=== PATIENT | male | born 1980 | race Two or more races ===

== ENCOUNTER 2017-07-03 19:34 | Emergency (ER) | payer OTHER ==
[~2017-07-03] VITALS: Ht 177.8 cm; Wt 86.2 kg
[2017-07-03 19:49] VITALS: BP 128/76
--- NOTE | 2017-07-03 19:49 | NUR ---
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 a/o x4 able to make needs known. no sob noted or pain at the site. states "happened 10 years ago". will continue to monitor for any changes
[2017-07-03] MEDS ORDERED: CLINDAMYCIN 900 MG in IV D5W 100 ML IM ONE (20:30)
== END 2017-07-03 20:15 | disposition home or self-care (01) ==
LOC: ER 19:36
DX: L03.114 Cellulitis of left upper limb (principal); F11.10 Opioid abuse, uncomplicated; F17.210 Nicotine dependence, cigarettes, uncomplicated
CPT/HCPCS: 99283; 99406; A4606; J3490; J7060; Z7610

== ENCOUNTER 2019-04-29 18:08 | Emergency (ER) | payer OTHER ==
[~2019-04-29] VITALS: Ht 177.8 cm; Wt 94.3 kg
[2019-04-29 19:28] LABS: APPEARANCE,URINE Clear (CLEAR); BILIRUBIN,URINE SMALL (NEGATIVE); BLOOD, URINE Negative Ery/uL (NEGATIVE); COLOR,URINE Dark (YELLOW); KETONES,URINE Negative (NEGATIVE); LEUKOCYTE ESTERASE ,URINE Negative (NEGATIVE); NITRITE, URINE Negative (NEGATIVE); PH,URINE 5.5 (5.0-8.0); PROTEIN,URINE 30 mg/dl (NEGATIVE); UGLUCOSE Negative (NEGATIVE); UROBILINOGEN,URINE 0.2 EU/dL (0.2)
--- NOTE | 2019-04-29 19:40 | NUR ---
DIFFUSE ABDOMINAL PAIN W/ N/V/D X 2 DAYS. PT AAOX4, VSS. DENIES CP, SOB, DIZZINESS @ THIS TIME. SEEN & EVAL'D BY WILIAN SNELL. WILL CONT TO MONITOR.
[2019-04-29 19:47] LABS: BACTERIA,URINE Few /HPF (None Seen); HYALINE CASTS, URINE Moderate /LPF (None Seen); SQUAMOUS EPITHELIAL CELL,UR Few /HPF (None Seen); WBC,URINE 0-2 /HPF (0-3)
[2019-04-29] MEDS ORDERED: ONDANSETRON HCL/PF 4 MG/2 ML VIAL ONE (19:47)
[2019-04-29 19:49] LABS: FINE GRANULAR CASTS,URINE Few /LPF (None Seen)
[2019-04-29 19:50] LABS: MUCUS,URINE Few /LPF (None Seen)
[2019-04-29] MEDS ORDERED: TDAP [DIPH/PERTUSSIS/TET] 0.5 ML VIAL IM ONE (20:12)
[2019-04-29] MEDS ORDERED: OLANZAPINE 10 MG VIAL IM ONE (20:12)
[2019-04-29] MEDS ORDERED: KETOROLAC TROMETHAMINE INJ 30 MG/ML VIAL ONE (20:12)
--- NOTE | 2019-04-29 20:34 | NUR ---
INFORMED CHECO FORTE UNABEL TO GET IV ACCESS AFTER MULTIPLE ATTEMPTS.
[2019-04-29 21:17] LABS: BASOPHILS % (AUTO) 0.2 % (0.0-2.0); LYMPHOCYTES # (AUTO) 1.5 /CMM (0.8-4.8)
[2019-04-29 21:22] LABS: EOSINOPHILS % (AUTO) 4.3 % (0.0-6.0); HEMATOCRIT 45 % (39-51); HEMOGLOBIN 15.9 g/dL (13.5-17.5); LYMPHOCYTES % (AUTO) 13.8 % (20.0-44.0); MEAN CORPUSCULAR HGB CONC 35 g/dl (31.0-36.0); MEAN CORPUSCULAR VOLUME 82 fL (80-96); MONOCYTES # (AUTO) 0.9 /CMM (0.1-1.30); MONOCYTES % (AUTO) 8.4 % (2.0-12.0); NEUTROPHILS # (AUTO) 7.8 /CMM (1.8-8.9); NEUTROPHILS % (AUTO) 73.3 % (43.0-81.0); PLATELET COUNT (AUTO) 273 /CMM (150-450); RED BLOOD CELL COUNT(AUTO) 5.55 MIL/uL (4.5-6.0); WHITE BLOOD COUNT (AUTO) 10.7 K/uL (4.3-11.0)
[2019-04-29] MEDS: IV NS 0.9% 1,000 ML BAG IV ONE ×2 (21:30→23:07)
[2019-04-29] MEDS: ONDANSETRON 4 MG TAB.RAPDIS SL ONE (21:31)
[2019-04-29 21:32] LABS: CALCIUM, SERUM 8.8 mg/dL (8.5-10.1); CREATININE 1.1 mg/dL (0.6-1.3); POTASSIUM 3.3 mmol/L (3.5-5.1)
[2019-04-29] MEDS: ONDANSETRON HCL/PF 4 MG/2 ML VIAL IVP ONE (21:32)
--- NOTE | 2019-04-29 21:36 | NUR ---
MEDICATED ORDERED PER WILIAN SNELL'S ORDER. PT WEI WELL.
[2019-04-29 21:37] LABS: ALBUMIN 3.9 g/dL (3.4-5.0); BILIRUBIN,DIRECT 0.1 mg/dL (0.0-0.2); BILIRUBIN,TOTAL 0.5 mg/dL (0.2-1.0); TOTAL PROTEIN, SERUM 8.2 g/dL (6.4-8.2)
[2019-04-29] MEDS ORDERED: POTASSIUM CHLORIDE 20 MEQ TAB.PRT.SR PO ONE (23:08)
[2019-04-29] MEDS: POTASSIUM CHLORIDE 20 MEQ TAB.PRT.SR PO ONE (23:11)
--- NOTE | 2019-04-29 23:31 | NUR ---
IV removed. Catheter intact and site benign. Pressure and 4x4 applied to site. No bleeding noted.
--- NOTE | 2019-04-30 00:04 | NUR ---
Patient discharged to home in stable condition. Written and verbal after care instructions given. Patient verbalizes understanding of instruction.Pt ambulatory with a steady gait
[2019-04-30 00:05] VITALS: BP 131/78
== END 2019-04-30 00:05 | disposition home or self-care (01) ==
LOC: ER 18:08
DX: R11.2 Nausea with vomiting, unspecified (principal); R19.7 Diarrhea, unspecified; R10.84 Generalized abdominal pain; R10.11 Right upper quadrant pain; F17.210 Nicotine dependence, cigarettes, uncomplicated; E87.6 Hypokalemia; F11.10 Opioid abuse, uncomplicated; Z90.89 Acquired absence of other organs
CPT/HCPCS: 36415; 80048; 80076; 81001; 83690; 85025; 96361; 96374; 99283; J2405; J7030 ×2; 81000-TC; 90715; J1885; J3490

== ENCOUNTER 2020-11-02 01:22 | Emergency (ER) | payer OTHER ==
[~2020-11-02] VITALS: Ht 175.3 cm; Wt 90.7 kg
[2020-11-02 01:30] VITALS: BP 120/81
[2020-11-02] MEDS ORDERED: SULF1TAB48 PO (01:41)
[2020-11-02] MEDS ORDERED: CEPH500T PO (01:41)
== END 2020-11-02 01:46 | disposition home or self-care (01) ==
LOC: ER 01:28
DX: L02.413 Cutaneous abscess of right upper limb (principal); L02.416 Cutaneous abscess of left lower limb; F19.10 Other psychoactive substance abuse, uncomplicated; F17.200 Nicotine dependence, unspecified, uncomplicated; Z98.890 Other specified postprocedural states; Z79.899 Other long term (current) drug therapy

== ENCOUNTER 2021-12-08 20:50 | Inpatient (IN) | payer OTHER ==
[~2021-12-08] VITALS: Ht 170.2 cm; Wt 78.5 kg
[~2021-12-08 20:50] MED LIST: CEPH500T PO; SULF1TAB48 PO
--- NOTE | 2021-12-08 21:30 | NUR ---
TO ER BED 4. BIBS C/O L UPPER THIGH/HIP CELLULITIS X 3 DAYS. REDNESS AND SWELLING NOTED. PT STATES PAIN 10/10 ON P/S. PT TOOK UNKNOWN UNPRESCRIBED ANTIBIOTIC FOR 3 DAYS. DID NOT TAKE ANYTHING FOR PAIN. CHANGED INTO GOWN. CONNECTED TO MONITOR. AWAITING MD BOWLES
[2021-12-08] MEDS ORDERED: IV NS 0.9% 500 ML BAG IV ONE (22:30)
[2021-12-08] MEDS ORDERED: ONDANSETRON HCL/PF 4 MG/2 ML VIAL IVP ONE (22:30)
[2021-12-08] MEDS ORDERED: VANCOMYCIN 1 GM in IV D5W 250 ML IV ONE (22:30)
[2021-12-08] MEDS ORDERED: MORPHINE SULFATE INJ 2 MG/ML DISP.SYRIN IV ONE (22:30)
[2021-12-08] MEDS ORDERED: MORPHINE SULFATE INJ 4 MG/ML DISP.SYRIN ONE (22:33)
[2021-12-08] MEDS ORDERED: ONDANSETRON HCL/PF 4 MG/2 ML VIAL ONE (22:33)
[2021-12-08] MEDS ORDERED: VANCOMYCIN 1 GM VIAL ONE (22:33)
--- NOTE | 2021-12-08 22:43 | NUR ---
BLOOD AND CULTURES COLLECTED AND SENT TO LAB
--- NOTE | 2021-12-08 22:43 | NUR ---
COVID SWAB DONE AND SENT TO LAB
[2021-12-08 23:00] LABS: BASOPHILS % (AUTO) 0.2 % (0.0-2.0); EOSINOPHILS % (AUTO) 0.4 % (0.0-6.0); HEMATOCRIT 39 % (39-51); HEMOGLOBIN 13.2 g/dL (13.5-17.5); LYMPHOCYTES # (AUTO) 0.8 K/uL (0.8-4.8); LYMPHOCYTES % (AUTO) 9.1 % (20.0-44.0); MEAN CORPUSCULAR HGB CONC 34 g/dl (31.0-36.0); MEAN CORPUSCULAR VOLUME 82 fL (80-96); MONOCYTES # (AUTO) 0.8 K/uL (0.1-1.30); MONOCYTES % (AUTO) 8.7 % (2.0-12.0); NEUTROPHILS # (AUTO) 7.6 K/uL (1.8-8.9); NEUTROPHILS % (AUTO) 81.6 % (43.0-81.0); PLATELET COUNT (AUTO) 339 K/uL (150-450); RED BLOOD CELL COUNT(AUTO) 4.79 MIL/uL (4.5-6.0); WHITE BLOOD COUNT (AUTO) 9.3 K/uL (4.3-11.0)
--- NOTE | 2021-12-08 23:02 | NUR ---
CLINICAL INFO GIVEN TO [employer] TEAM MEMBER, OVER THE PHONE
[2021-12-08 23:26] LABS: ALANINE AMINOTRANSFERASE 21 U/L (12-78); ALBUMIN 2.7 g/dL (3.4-5.0); ALKALINE PHOSPHATASE 239 U/L (46-116); ASPARTATE AMINOTRANSFERASE 16 U/L (15-37); BILIRUBIN,DIRECT 0.1 mg/dL (0.0-0.2); BILIRUBIN,TOTAL 0.5 mg/dL (0.2-1.0); CALCIUM, SERUM 8.7 mg/dL (8.5-10.1); CARBON DIOXIDE 31 mmol/L (21-32); CHLORIDE 87 mmol/L (98-107); CREATININE 1.5 mg/dL (0.6-1.3); LIPASE 29 U/L (73-393); POTASSIUM 4.2 mmol/L (3.5-5.1); SODIUM SERUM 127 mmol/L (136-145); TOTAL PROTEIN, SERUM 7.8 g/dL (6.4-8.2); UREA NITROGEN, BLOOD 14 mg/dL (7-18)
[2021-12-08 23:30] LABS: GLUCOSE > 500 mg/dL (74-106)
[2021-12-08] MEDS ORDERED: INSULIN REGULAR, HUMAN 100 UNIT/ML 10 ML VIAL IV ONE (23:30)
--- NOTE | 2021-12-08 23:30 | NUR ---
CRITICAL LABS LA 3.1 AND GLUCOSE >500
[2021-12-08] MEDS ORDERED: INSULIN REGULAR, HUMAN 100 UNIT/ML 10 ML VIAL ONE (23:34)
--- NOTE | 2021-12-09 00:09 | NUR ---
MRSA SWAB COLLECTED AND SENT TO LAB. PATIENT'S BELONGINGS LIST DONE.
--- NOTE | 2021-12-09 00:44 | NUR ---
REPORT GIVEN TO LOIDA POOLE FOR ANNIE
--- NOTE | 2021-12-09 01:00 | NUR ---
MS RN ADMITTING NOTES: RECEIVED PATIENT FROM ER VIA [facility] ON STABLE CONDITION, PLACED COMFORTABLY ON BED, BED IN LOW POSITION CALL LIGHTS WITHIN REACH, ON ROOM AIR SATURATING WELL WITH IV LINE AT RFA#20 WITH ONGOING PLR 1000 ONE TIME INFUSING WELL, SIN ASSESSMENT DONE AND DOCUMENTED, PATIENT INVENTORY DOCUMENTED AND SIGNED, PATIENT WAS ORIENTED TO PLACE, REMIND PATIENT TO USE CALL LIGHTS WHEN NEEDED ASSISTANCE, PATIENT KEPT CLEAN AND SRY ALL NEEDS MET WILL CONTINUE TO MOJITOR.
[2021-12-09] MEDS ORDERED: DEXTROSE 50%-WATER 50 ML DISP.SYRIN IV PRN (02:00)
[2021-12-09] MEDS ORDERED: IV LR 1000 ML 1,000 ML IV ONE ×2 (02:00)
[2021-12-09] MEDS ORDERED: MAG HYDROX/AL HYDROX/SIMETH 30 ML UDC PO PRN (02:00)
[2021-12-09] MEDS ORDERED: Z GUARD REMEDY 4 OZ OINT TP PRN (02:00)
[2021-12-09] MEDS ORDERED: ONDANSETRON HCL/PF 4 MG/2 ML VIAL IVP PRN (02:00)
[2021-12-09] MEDS ORDERED: MORPHINE SULFATE INJ 2 MG/ML DISP.SYRIN IV PRN (02:00)
[2021-12-09] MEDS ORDERED: ACETAMINOPHEN 325 MG TABLET PO PRN (02:00)
--- NOTE | 2021-12-09 02:00 | NUR ---
RN NOTES: PLR 1000ML NOT GIVEN REASON DUPLICATE ORDER
[2021-12-09 03:00] VITALS: BP 124/89
[2021-12-09] MEDS ORDERED: ZOSYN IVPB 3.375 G in IV D5W 50ml IV ONE (03:00)
[2021-12-09] MEDS ORDERED: PIPERACILLIN /TAZOBACTAM 3.375 G VIAL IV ONE (03:11)
[2021-12-09] MEDS ORDERED: PIPERACILLIN /TAZOBACTAM 3.375 G in IV D5W 50 ML IV SCH (06:00)
[2021-12-09 06:39] LABS: BASOPHILS % (AUTO) 0.2 % (0.0-2.0); EOSINOPHILS % (AUTO) 0.6 % (0.0-6.0); HEMATOCRIT 38 % (39-51); HEMOGLOBIN 12.8 g/dL (13.5-17.5); LYMPHOCYTES # (AUTO) 1.1 K/uL (0.8-4.8); LYMPHOCYTES % (AUTO) 12.3 % (20.0-44.0); MEAN CORPUSCULAR HGB CONC 34 g/dl (31.0-36.0); MEAN CORPUSCULAR VOLUME 82 fL (80-96); MONOCYTES # (AUTO) 1.1 K/uL (0.1-1.30); MONOCYTES % (AUTO) 11.9 % (2.0-12.0); NEUTROPHILS # (AUTO) 6.8 K/uL (1.8-8.9); PLATELET COUNT (AUTO) 330 K/uL (150-450); RED BLOOD CELL COUNT(AUTO) 4.58 MIL/uL (4.5-6.0); WHITE BLOOD COUNT (AUTO) 9.1 K/uL (4.3-11.0)
[2021-12-09] MEDS: BLOOD SUGAR DIAGNOSTIC 1 EACH STRIP IN SCH ×2 (06:41→11:50)
--- NOTE | 2021-12-09 06:42 | NUR ---
RN NOTES: BS-310/ 8 UNITS INSULIN GIVEN
[2021-12-09] MEDS: INSULIN REGULAR, HUMAN 100 UNIT/ML 3 ML VIAL SQ PRN ×2 (06:45→11:53)
[2021-12-09 07:06] LABS: ALBUMIN 2.2 g/dL (3.4-5.0); BILIRUBIN,TOTAL 0.4 mg/dL (0.2-1.0); CALCIUM, SERUM 8.4 mg/dL (8.5-10.1); CREATININE 0.8 mg/dL (0.6-1.3); MAGNESIUM 1.9 mg/dL (1.8-2.4); TOTAL PROTEIN, SERUM 6.9 g/dL (6.4-8.2)
--- NOTE | 2021-12-09 07:29 | NUR ---
RN CLOSING NOTES: RECEIVED PATIENT SLEEP IN BED COMFORTABLY,BED IN LOW POSITION CALL LIGHTS WITHIN RAC, NO COMPLAIN OF PAIN AND DISCOMFORT AT THIS TIME, ON ROOM AIR SATURATING WELL, ON TELE MONITORING SR-70 WITH PAC, WITH IV LINE AT RFA#20 WITH ONGOING PLR 1000 CC ONE TIME, PATIENT, KEPT CLEAN AND DRY SKIN ASSESS DONE AND DOCUMENTED, PATIENT KEPT CLEAN AND DRY ALL NEEDS MET ENDORSE TO INCOMING SHIFT. Addendum: 12/09/21 at 0734 by GRACE DARNELL RN RN NOTES: WRONG POSTING OF TELE MONTOR FOR PT. 320-[address]-110 NO SYMPTOMS OBSERVED, AND NOT SR-70 WITH PAC
--- NOTE | 2021-12-09 07:32 | NUR ---
RN OPENING NOTE- PT IN BED, IN PAIN, STATES "I WANT TO LEAVE. THIS IS TAKING TOO LONG. IT HURTS." NOC SHIFT RN RECENTLY ADMINISTERED MORPHINE 4 MG IVP (30 MIN AGO), CONTINUE TO MONITOR AND ADVISE MD. BED IN LOW POSITION CALL LIGHTS WITHIN [facility], NO COMPLAIN OF PAIN AND DISCOMFORT AT THIS TIME, ON ROOM AIR SATURATING WELL, ON TELE MONITORING SR-76 WITH PAC, WITH IV LINE AT RFA#20 WITH ONGOING PLR 1000 CC ONE TIME, PATIENT, KEPT CLEAN AND DRY SKIN . MONITOR / ASSIST
[2021-12-09 08:00] VITALS: BP 107/60
[2021-12-09] MEDS ORDERED: METF-442 PO (08:20)
[2021-12-09] MEDS ORDERED: FLUC100T8 PO (08:23)
[2021-12-09] MEDS ORDERED: HYDROCODONE/APAP 10/325MG TABLET PO PRN (08:30)
[2021-12-09] MEDS ORDERED: VANCOMYCIN 1 GM in IV D5W 250 ML IV SCH (11:00)
--- NOTE | 2021-12-09 11:40 | NUR ---
RN NOTE- IV INFILTRATED. MIDLINE ORDERED PER DR ROSALES
--- NOTE | 2021-12-09 11:41 | NUR ---
RN NOTE- 1100 AM [place] PLACED ON HOLD IV SITE COMPROMISED. AWAITING MIDLINE
[2021-12-09] MEDS ORDERED: INSULIN REGULAR, HUMAN 100 UNIT/ML 10 ML VIAL SQ STA (11:48)
--- NOTE | 2021-12-09 11:53 | NUR ---
RN NOTE- ACCU-CHECK BS-474. DR ROSALES ORDERED REG SSI COVERAGE OF TEN UNITS PLUS TWO MORE UNITS. TOTAL 12 UNITS REG INSULIN.
[2021-12-09 12:00] VITALS: BP 103/61
[2021-12-09] MEDS ORDERED: PIPERACILLIN /TAZOBACTAM 3.375 G in IV D5W 100 ML IV SCH (12:00)
[2021-12-09] MEDS ORDERED: HYDROCODONE/APAP 10/325MG TABLET PO STA (12:13)
--- NOTE | 2021-12-09 12:35 | NUR ---
RN NOTE- PT LEFT AMA . SPOKE W DR ROSALES . EXPLAINED THAT HE HAS INFECTION THAT REQUIRES MEDICAL TX. PT REFUSED TO STAY. ID [id number] REMOVED. AMA FORM SIGNED. ESCORTED OFF UNIT BY THIS RN
[2021-12-09] MEDS ORDERED: METFORMIN 500 MG TABLET PO SCH (17:00)
== END 2021-12-09 12:35 | disposition left against medical advice (07) | DRG 383 ==
LOC: ER 20:53 → MED 12-09 00:37 → TELE 12-09 06:01
PROVIDERS: ADMIT Nurse Practitioner Family; ATTEND Student in an Organized Health Care Education/Training Program
DX: L03.116 Cellulitis of left lower limb (principal); N17.0 Acute kidney failure with tubular necrosis; E44.0 Moderate protein-calorie malnutrition; E87.2 Acidosis; E87.1 Hypo-osmolality and hyponatremia; E88.09 Other disorders of plasma-protein metabolism, not elsewhere classified; E11.65 Type 2 diabetes mellitus with hyperglycemia; Z79.84 Long term (current) use of oral hypoglycemic drugs; Z90.49 Acquired absence of other specified parts of digestive tract; F17.200 Nicotine dependence, unspecified, uncomplicated; F19.10 Other psychoactive substance abuse, uncomplicated; E86.1 Hypovolemia
CPT/HCPCS: 36415; 73700-TC; 76882; 80048-TC; 80053-TC; 80076-TC; 82010-TC; 82962-TC; 83605-TC; 83690-TC; 83735-TC; 85025-TC; 85730-TC; 87040-TC; 87081-TC; C9803; G0378; J1815; J2270; J2405; J2543; J3370; J7040; J7060; J7120

== ENCOUNTER 2021-12-12 23:29 | Inpatient (IN) | payer OTHER ==
[~2021-12-12] VITALS: Ht 177.8 cm; Wt 77.1 kg
[~2021-12-12 23:29] MED LIST changes: -CEPH500T PO; +FLUC100T8 PO; +METF-442 PO; -SULF1TAB48 PO
--- NOTE | 2021-12-13 01:50 | NUR ---
IV LINE ESTABLISHED , L UPPER ARM 20G. BLOOD OBTAINED AND SENT TO LAB
--- NOTE | 2021-12-13 01:54 | NUR ---
BIBS. TO ER BED 7.AAOX4. NOT IN RESP DISTRESS, BREATHING EVEN AND UNLABORED. AMBULATORY WITH A LIMP. CAME IN FOR AN ABSCESS ON HIS L UPPER THIGH WHICH HAS BEEN GOING ON FOR THE PAST 5 DAYS. NOTED PAIN, SWELLING AND REDNESS. MD WAS AT THE BEDSIDE FOR EVAL. ORDERS RECEIVED, NOTED AND CARRIED OUT
--- NOTE | 2021-12-13 01:55 | NUR ---
COVID ANTIGEN SWAB COLLECTED AND SENT TO LAB
[2021-12-13] MEDS ORDERED: MORPHINE SULFATE INJ 2 MG/ML DISP.SYRIN IV ONE ×2 (02:00→10:30)
[2021-12-13] MEDS ORDERED: ONDANSETRON HCL/PF 4 MG/2 ML VIAL IVP ONE (02:00)
[2021-12-13] MEDS ORDERED: IV NS 0.9% 1,000 ML BAG IV ONE (02:00)
[2021-12-13] MEDS ORDERED: VANCOMYCIN 1 GM in IV D5W 250 ML IV ONE (02:00)
[2021-12-13] MEDS ORDERED: ONDANSETRON HCL/PF 4 MG/2 ML VIAL ONE (02:04)
[2021-12-13] MEDS ORDERED: MORPHINE SULFATE INJ 4 MG/ML DISP.SYRIN ONE (02:05)
[2021-12-13] MEDS ORDERED: VANCOMYCIN 1 GM VIAL ONE (02:05)
[2021-12-13 02:20] LABS: BASOPHILS % (AUTO) 0.3 % (0.0-2.0); EOSINOPHILS % (AUTO) 0.9 % (0.0-6.0); HEMATOCRIT 34 % (39-51); HEMOGLOBIN 11.6 g/dL (13.5-17.5); LYMPHOCYTES # (AUTO) 1.2 K/uL (0.8-4.8); MEAN CORPUSCULAR HGB CONC 34 g/dl (31.0-36.0); MEAN CORPUSCULAR VOLUME 81 fL (80-96); MONOCYTES % (AUTO) 9.2 % (2.0-12.0); NEUTROPHILS # (AUTO) 8.3 K/uL (1.8-8.9); NEUTROPHILS % (AUTO) 78.6 % (43.0-81.0); PLATELET COUNT (AUTO) 402 K/uL (150-450); RED BLOOD CELL COUNT(AUTO) 4.19 MIL/uL (4.5-6.0); WHITE BLOOD COUNT (AUTO) 10.5 K/uL (4.3-11.0)
[2021-12-13 02:29] LABS: CALCIUM, SERUM 8.8 mg/dL (8.5-10.1)
[2021-12-13 02:44] LABS: ALBUMIN 2.4 g/dL (3.4-5.0); BILIRUBIN,DIRECT 0.1 mg/dL (0.0-0.2); BILIRUBIN,TOTAL 0.3 mg/dL (0.2-1.0); TOTAL PROTEIN, SERUM 7.3 g/dL (6.4-8.2)
--- NOTE | 2021-12-13 05:10 | NUR ---
EPIC PANEL PAGED
--- NOTE | 2021-12-13 05:16 | NUR ---
DR. CALLOWAY ON PHONE CALL WITH DR. OLIVAREZ REGARDING ADMISSION
[2021-12-13] MEDS ORDERED: ACETAMINOPHEN 325 MG TABLET PO PRN (05:30)
[2021-12-13] MEDS ORDERED: hydrALAZINE HCL IV 20 MG VIAL IV PRN (05:30)
[2021-12-13] MEDS ORDERED: INSULIN REGULAR, HUMAN 100 UNIT/ML 3 ML VIAL SQ PRN (05:30)
[2021-12-13] MEDS ORDERED: IV NS 0.9% 1,000 ML IV SCH (05:30)
[2021-12-13] MEDS ORDERED: DEXTROSE 50%-WATER 50 ML DISP.SYRIN IV PRN (05:30)
[2021-12-13] MEDS ORDERED: CEFEPIME 1 GM in IV D5W 50 ML IV ONE (06:00)
--- NOTE | 2021-12-13 06:00 | NUR ---
PT STATES HE HAS PAIN 10/10 ON P/S. WILL PROVIDE PRN PAIN MEDS ORDERED BY .
[2021-12-13] MEDS ORDERED: CEFEPIME 1 GM VIAL ONE (06:04)
[2021-12-13] MEDS ORDERED: MORPHINE SULFATE INJ 2 MG/ML DISP.SYRIN ONE (06:13)
[2021-12-13] MEDS: MORPHINE SULFATE INJ 2 MG/ML DISP.SYRIN IV PRN ×3 (06:17→14:53)
--- NOTE | 2021-12-13 07:51 | NUR ---
BED 326-2. ADMITTING AND NURSE NOTIFIED.
--- NOTE | 2021-12-13 08:02 | NUR ---
REPORT GIVEN TO ELIZABETH POOLE FOR ANNIE
--- NOTE | 2021-12-13 08:17 | NUR ---
TRANSFERRED TO BED 326 IN STABLE CONDITION
--- NOTE | 2021-12-13 08:20 | NUR ---
RN NOTES PATIENT ARRIVED TO UNIT AT ROOM 326-2 VIA GURNEY, ACCOMPANIED BY 1 TECH. ABLE TO USE SPC FOR AMBULATION W/ SBA/CGA.
[2021-12-13] MEDS: BLOOD SUGAR DIAGNOSTIC 1 EACH STRIP IN SCH ×3 (08:57→17:31)
[2021-12-13] MEDS ORDERED: HEPARIN SODIUM, PORCINE 5000 UNITS/1 ML VIAL SQ SCH (09:00)
[2021-12-13 09:30] VITALS: BP 108/74
[2021-12-13] MEDS ORDERED: LIDOCAINE 2%-EPI 1:100,000 30 ML VIAL TP ONE ×2 (09:30→10:30)
--- NOTE | 2021-12-13 09:30 | NUR ---
WOUND CARE CONSULT; PT PRESENTS WITH LARGE RAISED RED AREA TO LEFT ANTERIOR THIGH/GROIN AREA, PRESENT ON ADMISSION. DR TYSON MUNOZ ON CASE. WILL SEE PRN.
--- NOTE | 2021-12-13 09:31 | NUR ---
RN NOTES PATIENT SEEN BY EVIE LOWE NP, FOR SURGICAL CONSULT. PATIENT NOTED W/ ABSCESS ON LEFT GROIN/THIGH AREA; UNABLE TO TAKE PHOTO PATIENT REFUSED AT THIS TIME. FOR INCISION AND DRAINAGE PROCEDURE. PATIENT CONSENTED AND FORM PLACED IN THE CHART.
[2021-12-13] MEDS ORDERED: IV NS 0.9% 1,000 ML IV PRN (09:38)
[2021-12-13] MEDS ORDERED: VANCOMYCIN 1.25 GM in IV D5W 250 ML IV SCH (10:00)
--- NOTE | 2021-12-13 10:30 | NUR ---
RN NOTES S/P I&D OF LEFT GROIN ABSCESS; ABLE TO DRAIN ~250CC OF SANGUINEOUS DRAINAGE MIXED W/ PUS. CULTURE OBTAINED.
--- NOTE | 2021-12-13 13:52 | NUR ---
RN NOTES ADMITTED THIS 41-Y.O. MALE FROM ER W/ COMPLAINT OF L UPPER THIGH ABSCESS X5DAYS W/ ADMITTING DIAGNOSIS OF CELLULITIS. PATIENT IS A/O X4, VERBALLY RESPONSIVE, ABLE TO MAKE NEEDS KNOWN. HX OF SUBSTANCE USE/ABUSE, DM, AND ETOH. PATIENT IS ABLE TO AMBULATE W/ SPC W/ CGA. IV LINE INTACT AND PATENT. NOTED W/ L THIGH/GROIN ABSCESS, UNABLE TO TAKE PICTURES PRE-OPERATIVELY PATIENT REFUSED BECAUSE HE WAS IN SO MUCH PAIN TO TURN. ABLE TO USE URINAL AT BEDSIDE. PAIN MANAGED APPROPRIATELY. SAFETY MEASURES IN PLACE. CALL LIGHT PLACED W/IN REACH FOR ASSISTANCE.
[2021-12-13 16:00] VITALS: BP 107/68
--- NOTE | 2021-12-13 18:29 | NUR ---
RN NOTES PATIENT REQUESTING FOR PAIN MEDICATION AND ONLY AVAILABLE MEDICATION IS MORPHINE IV; UNABLE TO GIVE THROUGH IV AT THIS TIME PATIENT'S IV LINE IS INFILTRATED. INFORMED DR. KIM, AWAITING CALL BACK FOR ORDER.
[2021-12-13] MEDS ORDERED: HYDROCODONE/APAP 10/325MG TABLET PO PRN (18:30)
--- NOTE | 2021-12-13 19:30 | NUR ---
MS RN OPENING NOTES; RECEIVE PATIENT AWAKE IN BED, PATIENT IS A/OX4 AMBULATORY ABLE TO MAKE NEEDS KNOWN, S/P I&D OF LEFT T6HIGH WITH ABSVESS, ON ROOM AIR SATURATING WELL, DRESSING CHANGE, PATIENT KEPT CLEAN AND DRY ALL NEEDSMET WILL CONTINUE TO MONITOR.
[2021-12-13 20:00] VITALS: BP 107/61
[2021-12-13] MEDS ORDERED: CEFEPIME 2 GM in IV D5W 100 ML IV SCH (20:00)
--- NOTE | 2021-12-13 20:25 | NUR ---
RN NOTES: PATIENT WENT ON AMA EXPLAIN THE RISK BUT PATIENT INSIST DUE TO EMERGENCY REASON, SIGNED AMA FORM, DAMARIS TORRES, WAS MADE AWARE, NOTIFY DR KANDACE [place] AND HOSPITALIST DR ROSALES.
== END 2021-12-13 20:20 | disposition left against medical advice (07) | DRG 383 ==
LOC: ER 23:38 → TRANSITION 12-13 05:42 → MED 12-13 07:56
PROVIDERS: ADMIT Internal Medicine; ATTEND Internal Medicine
PROC: 0H9JXZZ Drainage of Left Upper Leg Skin, External Approach (ICD-10-PCS; principal; 2021-12-13)
PROC: 0H99XZZ Drainage of Perineum Skin, External Approach (ICD-10-PCS; 2021-12-13)
DX: L03.116 Cellulitis of left lower limb (principal); E43 Unspecified severe protein-calorie malnutrition; D63.8 Anemia in other chronic diseases classified elsewhere; E88.09 Other disorders of plasma-protein metabolism, not elsewhere classified; E87.1 Hypo-osmolality and hyponatremia; L02.214 Cutaneous abscess of groin; L02.416 Cutaneous abscess of left lower limb; E86.1 Hypovolemia; F17.200 Nicotine dependence, unspecified, uncomplicated; Z20.822 Contact with and (suspected) exposure to COVID-19; Z53.29 Procedure and treatment not carried out because of patient's decision for other reasons; E11.9 Type 2 diabetes mellitus without complications; Z90.49 Acquired absence of other specified parts of digestive tract; Z79.84 Long term (current) use of oral hypoglycemic drugs; F12.10 Cannabis abuse, uncomplicated
CPT/HCPCS: 36415; 80048-TC; 80076-TC; 82962-TC; 83605-TC; 85025-TC; 85730-TC; 87040-TC; 87070-TC; A6253; A6403; C9803; G0378; J0692; J1644; J2270; J2405; J3370; J3490; J7030; J7060

== ENCOUNTER 2024-03-08 12:03 | Inpatient (IN) | payer OTHER ==
[~2024-03-08] VITALS: Ht 177.8 cm; Wt 81.6 kg
[2024-03-08] MEDS ORDERED: ONDANSETRON HCL/PF 4 MG/2 ML VIAL ONE (12:58)
[2024-03-08] MEDS ORDERED: MORPHINE SULFATE INJ 4 MG/ML DISP.SYRIN ONE (12:58)
[2024-03-08] MEDS: ONDANSETRON HCL/PF 4 MG/2 ML VIAL IVP ONE (14:01)
[2024-03-08] MEDS: MORPHINE SULFATE INJ 2 MG/ML DISP.SYRIN IV ONE (14:02)
[2024-03-08] MEDS: IV NS 0.9% 1,000 ML BAG IV ONE (14:04)
[2024-03-08] MEDS: CEFEPIME 1 GM in IV D5W 50 ML IV ONE (14:05)
[2024-03-08] MEDS ORDERED: IOHEXOL-300 100 ML VIAL IV ONE (14:11)
[2024-03-08] MEDS ORDERED: IV NS 0.9% 500 ML IV ONE (14:11)
[2024-03-08 14:26] LABS: BASOPHILS % (AUTO) 0.1 % (0.0-2.0); EOSINOPHILS % (AUTO) 0.2 % (0.0-6.0); HEMATOCRIT 34 % (39-51); HEMOGLOBIN 11.3 g/dL (13.5-17.5); LYMPHOCYTES # (AUTO) 0.9 K/uL (0.8-4.8); LYMPHOCYTES % (AUTO) 7.9 % (20.0-44.0); MEAN CORPUSCULAR HEMOGLOBIN 27 PG (26.0-33.0); MEAN CORPUSCULAR HGB CONC 33 g/dl (31.0-36.0); MEAN CORPUSCULAR VOLUME 81 fL (80-96); MONOCYTES % (AUTO) 8.2 % (2.0-12.0); NEUTROPHILS # (AUTO) 9.9 K/uL (1.8-8.9); NEUTROPHILS % (AUTO) 83.6 % (43.0-81.0); PLATELET COUNT (AUTO) 373 K/uL (150-450); RED BLOOD CELL COUNT(AUTO) 4.24 MIL/uL (4.5-6.0); RED CELL DISTRIBUTION WIDTH 13.2 % (11.5-15.0); WHITE BLOOD COUNT (AUTO) 11.8 K/uL (4.3-11.0)
[2024-03-08 14:32] LABS: CALCIUM, SERUM 8.9 mg/dL (8.5-10.1); POTASSIUM 4.1 mmol/L (3.5-5.1)
[2024-03-08] MEDS: INSULIN LISPRO/ASPART 100 UNIT/ML CARTRIDGE SQ STA (14:35)
[2024-03-08 14:38] LABS: ALBUMIN 2.7 g/dL (3.4-5.0); BILIRUBIN,DIRECT 0.2 mg/dL (0.0-0.2); BILIRUBIN,TOTAL 0.5 mg/dL (0.2-1.0); TOTAL PROTEIN, SERUM 7.7 g/dL (6.4-8.2)
[2024-03-08] MEDS: VANCOMYCIN 1 GM in IV D5W 250 ML IV ONE (14:40)
[2024-03-08 14:42] LABS: LACTIC ACID 1.4 mmol/L (0.4-2.0)
[2024-03-08 14:43] LABS: INR 1.09 (0.91-1.10); PARTIAL THROMBOPLASTIN TIME 29.7 SEC (24.3-34.3); PROTHROMBIN TIME 11.5 SECS (9.2-11.1)
[2024-03-08] MEDS ORDERED: INSULIN REGULAR, HUMAN 100 UNIT/ML 10 ML VIAL ONE (14:48)
[2024-03-08 16:00] VITALS: BP 115/85; TEMP 97.6; O2SAT 100
[2024-03-08] MEDS: IV NS 0.9% 1,000 ML IV PRN (18:27)
[2024-03-08] MEDS ORDERED: ACETAMINOPHEN 325 MG TABLET PO PRN (18:30)
[2024-03-08] MEDS ORDERED: Z GUARD REMEDY 4 OZ OINT TP PRN (18:30)
[2024-03-08] MEDS: MORPHINE SULFATE INJ 4 MG/ML DISP.SYRIN IV PRN (18:33)
[2024-03-08] MEDS: ONDANSETRON HCL/PF 4 MG/2 ML VIAL IVP PRN (18:34)
[2024-03-08] MEDS: PIPERACILLIN /TAZOBACTAM 3.375 G in IV D5W 50 ML IV SCH (18:42)
[2024-03-08] MEDS ORDERED: DEXTROSE 50%-WATER 50 ML DISP.SYRIN IV PRN (19:00)
[2024-03-08 21:00] VITALS: BP 115/72; TEMP 98.8; O2SAT 96
[2024-03-08] MEDS: BLOOD SUGAR DIAGNOSTIC 1 EACH STRIP IN SCH (22:38)
[2024-03-08] MEDS: INSULIN REGULAR, HUMAN 100 UNIT/ML 3 ML VIAL SQ PRN (22:42)
[2024-03-08] MEDS: ENOXAPARIN SODIUM 40 MG/0.4 ML DISP.SYRIN SQ SCH (22:42)
[2024-03-08] MEDS: VANCOMYCIN 750 MG in IV D5W 250 ML IV SCH (22:54)
[2024-03-09 05:00] VITALS: BP 119/68; TEMP 98.8; O2SAT 100
[2024-03-09 07:09] LABS: BASOPHILS % (AUTO) 0.4 % (0.0-2.0); EOSINOPHILS % (AUTO) 0.1 % (0.0-6.0); HEMATOCRIT 34 % (39-51); HEMOGLOBIN 11.4 g/dL (13.5-17.5); LYMPHOCYTES # (AUTO) 0.6 K/uL (0.8-4.8); LYMPHOCYTES % (AUTO) 4.4 % (20.0-44.0); MEAN CORPUSCULAR HEMOGLOBIN 27 PG (26.0-33.0); MEAN CORPUSCULAR HGB CONC 34 g/dl (31.0-36.0); MEAN CORPUSCULAR VOLUME 80 fL (80-96); MONOCYTES # (AUTO) 0.9 K/uL (0.1-1.30); MONOCYTES % (AUTO) 6.8 % (2.0-12.0); NEUTROPHILS # (AUTO) 11.4 K/uL (1.8-8.9); NEUTROPHILS % (AUTO) 88.3 % (43.0-81.0); PLATELET COUNT (AUTO) 389 K/uL (150-450); RED BLOOD CELL COUNT(AUTO) 4.24 MIL/uL (4.5-6.0); RED CELL DISTRIBUTION WIDTH 12.8 % (11.5-15.0); WHITE BLOOD COUNT (AUTO) 12.9 K/uL (4.3-11.0)
[2024-03-09 07:41] LABS: CALCIUM, SERUM 8.2 mg/dL (8.5-10.1); CREATININE 0.6 mg/dL (0.6-1.3); PHOSPHORUS 3.2 mg/dL (2.5-4.9); POTASSIUM 3.6 mmol/L (3.5-5.1)
[2024-03-09 08:00] VITALS: BP 118/80; TEMP 98.6; O2SAT 100
[2024-03-09] MEDS: PANTOPRAZOLE 40 MG TABLET.DR PO SCH (08:13)
[2024-03-09 12:00] VITALS: BP 136/56; TEMP 97.7; O2SAT 98
[2024-03-09] MEDS: GABAPENTIN 300 MG CAPSULE PO SCH (12:45)
[2024-03-09] MEDS: CELECOXIB 100 MG CAPSULE PO SCH (12:49)
[2024-03-09 16:00] VITALS: BP 135/57; TEMP 97.9; O2SAT 95
[2024-03-09] MEDS ORDERED: VANCOMYCIN 750 MG in IV D5W 250 ML IV SCH (16:00)
[2024-03-09] MEDS: HYDROMORPHONE 1 MG/1 ML DISP.SYRIN IV PRN (16:08)
[2024-03-09] MEDS: VANCOMYCIN HCL 1.25 GM in IV D5W 250 ML IV SCH (17:14)
[2024-03-09 21:00] VITALS: BP 114/77; TEMP 97.9; O2SAT 95
[2024-03-09] MEDS ORDERED: FENTANYL PF 250MCG/5ML AMPUL ONE ×2 (22:56→23:29)
[2024-03-09] MEDS ORDERED: MIDAZOLAM HCL 2 MG/2ML VIAL ONE (22:56)
[2024-03-09] MEDS ORDERED: HYDROMORPHONE INJ 2 MG/ML DISP.SYRIN ONE (23:41)
[2024-03-10] MEDS ORDERED: IV LR 1000 ML 1,000 ML IV PRN (01:00)
[2024-03-10] MEDS: IV LR 1000 ML 1,000 ML IV PRN (01:19)
[2024-03-10 01:30] VITALS: BP 124/84; TEMP 98.5; O2SAT 100
[2024-03-10 02:00] VITALS: BP 113/75; TEMP 98.6; O2SAT 100
[2024-03-10 02:30] VITALS: BP 112/75; TEMP 98.6; O2SAT 100
[2024-03-10 05:00] VITALS: BP 125/77; TEMP 98.6; O2SAT 100
[2024-03-10 08:00] VITALS: BP 97/71; TEMP 97.5; O2SAT 99
[2024-03-10 16:00] VITALS: BP 140/88; TEMP 97.5; O2SAT 100
[2024-03-11] MEDS ORDERED: SULF1TAB48 PO (09:11)
== END 2024-03-10 16:55 | disposition left against medical advice (07) | DRG 383 ==
LOC: ER 12:03 → MEDSG1 15:08
PROVIDERS: ADMIT Nurse Practitioner Acute Care; ATTEND Nurse Practitioner Acute Care
PROC: 0H9JXZX Drainage of Left Upper Leg Skin, External Approach, Diagnostic (ICD-10-PCS; principal; 2024-03-09)
DX: L02.416 Cutaneous abscess of left lower limb (principal); D63.8 Anemia in other chronic diseases classified elsewhere; L02.214 Cutaneous abscess of groin; E11.65 Type 2 diabetes mellitus with hyperglycemia; E87.1 Hypo-osmolality and hyponatremia; Z90.49 Acquired absence of other specified parts of digestive tract; Z79.84 Long term (current) use of oral hypoglycemic drugs; Z91.199 Patient's noncompliance with other medical treatment and regimen due to unspecified reason; Z79.4 Long term (current) use of insulin; Z53.29 Procedure and treatment not carried out because of patient's decision for other reasons; F11.10 Opioid abuse, uncomplicated; Z87.2 Personal history of diseases of the skin and subcutaneous tissue
CPT/HCPCS: 36415; 71045-TC; 73701-TC; 80048-TC; 80076-TC; 80202-TC; 82962-TC; 83605-TC; 83735-TC; 84100-TC; 84443-TC; 85025-TC; 85730-TC; 87040-TC; 87081-TC; 98960; A4223; A6253; A6403; G0378; J0692; J1170; J1650; J1815; J2250; J2270; J2405; J2543; J2704; J3010; J3370; J3371; J7030; J7040; J7060; J7120; Q9967

== ENCOUNTER 2024-09-04 15:21 | Inpatient (IN) | payer OTHER ==
[~2024-09-04] VITALS: Ht 177.8 cm; Wt 70.7 kg
[~2024-09-04 15:21] MED LIST changes: -FLUC100T8 PO; +SULF1TAB48 PO
[2024-09-04] MEDS ORDERED: IV NS 0.9% 250 ML IV ONE (16:12)
[2024-09-04] MEDS ORDERED: IOHEXOL-300 100 ML VIAL IV ONE (16:12)
[2024-09-04] MEDS: CEFEPIME 1 GM in IV D5W 50 ML IV ONE (16:30)
[2024-09-04 16:40] LABS: C-REACTIVE PROTEIN 15.34 mg/dL (0.0-0.30)
[2024-09-04 16:41] LABS: CALCIUM, SERUM 8.1 mg/dL (8.5-10.1); CREATININE 0.8 mg/dL (0.6-1.3); POTASSIUM 4.4 mmol/L (3.5-5.1)
[2024-09-04 16:57] LABS: BASOPHILS % (AUTO) 0.1 % (0.0-2.0); EOSINOPHILS % (AUTO) 0.4 % (0.0-6.0); HEMATOCRIT 35 % (39-51); HEMOGLOBIN 12.2 g/dL (13.5-17.5); LYMPHOCYTES # (AUTO) 0.9 K/uL (0.8-4.8); LYMPHOCYTES % (AUTO) 12.3 % (20.0-44.0); MEAN CORPUSCULAR HEMOGLOBIN 27 PG (26.0-33.0); MEAN CORPUSCULAR HGB CONC 35 g/dl (31.0-36.0); MEAN CORPUSCULAR VOLUME 78 fL (80-96); MONOCYTES # (AUTO) 0.7 K/uL (0.1-1.30); MONOCYTES % (AUTO) 9.1 % (2.0-12.0); NEUTROPHILS # (AUTO) 5.8 K/uL (1.8-8.9); NEUTROPHILS % (AUTO) 78.1 % (43.0-81.0); PLATELET COUNT (AUTO) 234 K/uL (150-450); RED BLOOD CELL COUNT(AUTO) 4.49 MIL/uL (4.5-6.0); RED CELL DISTRIBUTION WIDTH 13.5 % (11.5-15.0); WHITE BLOOD COUNT (AUTO) 7.4 K/uL (4.3-11.0)
[2024-09-04 16:59] LABS: ERYTHROCYTE SEDIMENTATION RATE 36 MM/HR (0-15)
[2024-09-04] MEDS: VANCOMYCIN 1 GM in IV D5W 250 ML IV ONE (17:15)
[2024-09-04 18:30] VITALS: O2SAT 94
[2024-09-04] MEDS ORDERED: KETOROLAC TROMETHAMINE INJ 30 MG/ML VIAL ONE (19:57)
[2024-09-04] MEDS: KETOROLAC TROMETHAMINE INJ 30 MG/ML VIAL IV ONE (20:02)
[2024-09-04] MEDS ORDERED: DEXTROSE 50%-WATER 50 ML DISP.SYRIN IV PRN (20:30)
[2024-09-04] MEDS ORDERED: Z GUARD REMEDY 4 OZ OINT TP PRN (20:30)
[2024-09-04] MEDS ORDERED: ENOXAPARIN SODIUM 30 MG/0.3 ML DISP.SYRIN SQ SCH (20:30)
[2024-09-04] MEDS: IV NS 0.9% 1,000 ML IV PRN (21:16)
[2024-09-04] MEDS: ENOXAPARIN SODIUM 40 MG/0.4 ML DISP.SYRIN SQ SCH (21:30)
[2024-09-04] MEDS: BLOOD SUGAR DIAGNOSTIC 1 EACH STRIP IN SCH (22:14)
[2024-09-04] MEDS: *INSULIN REGULAR(HUMULIN R)HUM 100 UNIT/ML VIAL SQ PRN (22:18)
[2024-09-04] MEDS ORDERED: VANCOMYCIN 1 GM /D5W 250 ML PB IV ONE (23:34)
[2024-09-05] MEDS: VANCOMYCIN 1 GM in IV D5W 250ml IV ONE (00:02)
[2024-09-05] MEDS ORDERED: CEFEPIME 1 GM VIAL ONE (00:39)
[2024-09-05] MEDS: CEFEPIME 1 GM in IV D5W 50 ML IV ONE (00:58)
[2024-09-05] MEDS: INSULIN REGULAR, HUMAN 100 UNIT/ML 3 ML VIAL SQ PRN (06:35)
[2024-09-05] MEDS: KETOROLAC TROMETHAMINE 15 MG/ML VIAL IV PRN (06:38)
[2024-09-05 07:16] LABS: BASOPHILS % (AUTO) 0.2 % (0.0-2.0); EOSINOPHILS # (AUTO) 0.1 K/uL (0.0-0.7); EOSINOPHILS % (AUTO) 1.2 % (0.0-6.0); HEMATOCRIT 33 % (39-51); HEMOGLOBIN 11.2 g/dL (13.5-17.5); LYMPHOCYTES # (AUTO) 0.9 K/uL (0.8-4.8); LYMPHOCYTES % (AUTO) 16.7 % (20.0-44.0); MEAN CORPUSCULAR HEMOGLOBIN 27 PG (26.0-33.0); MEAN CORPUSCULAR HGB CONC 34 g/dl (31.0-36.0); MEAN CORPUSCULAR VOLUME 78 fL (80-96); MONOCYTES # (AUTO) 0.6 K/uL (0.1-1.30); MONOCYTES % (AUTO) 10.3 % (2.0-12.0); NEUTROPHILS # (AUTO) 4.1 K/uL (1.8-8.9); NEUTROPHILS % (AUTO) 71.6 % (43.0-81.0); PLATELET COUNT (AUTO) 203 K/uL (150-450); RED BLOOD CELL COUNT(AUTO) 4.24 MIL/uL (4.5-6.0); WHITE BLOOD COUNT (AUTO) 5.7 K/uL (4.3-11.0)
[2024-09-05] MEDS: VANCOMYCIN 1 GM in IV D5W 250ml IV SCH (07:37)
[2024-09-05 07:56] LABS: CALCIUM, SERUM 8.1 mg/dL (8.5-10.1); CREATININE 0.6 mg/dL (0.6-1.3); MAGNESIUM 1.7 mg/dL (1.8-2.4); PHOSPHORUS 2.8 mg/dL (2.5-4.9); POTASSIUM 3.5 mmol/L (3.5-5.1)
[2024-09-05] MEDS: CEFEPIME 2 GM in IV D5W 100 ML IV SCH (08:52)
[2024-09-05] MEDS: HYDROMORPHONE 1 MG/1 ML DISP.SYRIN IV PRN (08:55)
[2024-09-05 09:02] VITALS: BP 100/65; TEMP 98.4; O2SAT 97
[2024-09-05] MEDS: METFORMIN 500 MG TABLET PO SCH (10:11)
[2024-09-05] MEDS: PANTOPRAZOLE 40 MG VIAL IV SCH (10:11)
[2024-09-05] MEDS: Magnesium 1GM/D5W 100ML PREMIX 100 ML IV SCH (10:11)
[2024-09-05] MEDS ORDERED: MIDAZOLAM HCL 2 MG/2ML VIAL ONE (11:49)
[2024-09-05] MEDS ORDERED: KETOROLAC TROMETHAMINE INJ 30 MG/ML VIAL ONE (12:00)
[2024-09-05] MEDS ORDERED: KETOROLAC TROMETHAMINE INJ 30 MG/ML VIAL IM PRN (12:00)
[2024-09-05] MEDS ORDERED: ACETAMINOPHEN 325 MG TABLET PO PRN (13:00)
[2024-09-05] MEDS: ONDANSETRON HCL/PF 4 MG/2 ML VIAL IVP PRN (14:55)
[2024-09-05] MEDS: IV LR 1000 ML 1,000 ML IV PRN (14:55)
== END 2024-09-05 16:00 | disposition left against medical advice (07) | DRG 383 ==
LOC: ER 15:35 → MED 20:06
PROVIDERS: ADMIT Nurse Practitioner Family; ATTEND Nurse Practitioner Family
PROC: 0H9HX0Z Drainage of Right Upper Leg Skin with Drainage Device, External Approach (ICD-10-PCS; principal; 2024-09-05)
DX: L02.415 Cutaneous abscess of right lower limb (principal); D63.8 Anemia in other chronic diseases classified elsewhere; E11.621 Type 2 diabetes mellitus with foot ulcer; E11.42 Type 2 diabetes mellitus with diabetic polyneuropathy; L97.422 Non-pressure chronic ulcer of left heel and midfoot with fat layer exposed; E87.1 Hypo-osmolality and hyponatremia; E86.0 Dehydration; E11.65 Type 2 diabetes mellitus with hyperglycemia; Z79.84 Long term (current) use of oral hypoglycemic drugs; Z90.49 Acquired absence of other specified parts of digestive tract; F19.90 Other psychoactive substance use, unspecified, uncomplicated; R26.9 Unspecified abnormalities of gait and mobility; F41.9 Anxiety disorder, unspecified; E86.1 Hypovolemia; F11.10 Opioid abuse, uncomplicated
CPT/HCPCS: 36415; 73701-TC; 80048-TC; 80202-TC; 82962-TC; 83735-TC; 84100-TC; 85025-TC; 85652-TC; 86140-TC; 87040-TC; A4223; G0378; J0692; J1100; J1171; J1650; J1815; J1885; J2250; J2405; J2470; J2704; J3370; J3475; J3490; J7030; J7050; J7060; J7120; Q9967